=== PATIENT | male | born 1950 | race Caucasian/White ===

== ENCOUNTER 2020-10-22 07:38 | Inpatient (IN) | payer MEDICAID ==
[~2020-10-22] VITALS: Ht 165.1 cm; Wt 73.1 kg
[2020-10-22] MEDS ORDERED: AZITHROMYCIN 500 MG in DEXT 5% WATER 250 ML IV ONE (08:15)
[2020-10-22] MEDS ORDERED: SODIUM CHLORIDE 0.9% 1,000 ML IV ONE (08:15)
[2020-10-22] MEDS ORDERED: DEXAMETHASONE 10 MG/ML VIAL IV ONE (08:15)
[2020-10-22] MEDS ORDERED: CEFTRIAXONE 1 G PREMIX 50 ML IV ONE ×2 (08:15→15:45)
[2020-10-22 08:55] LABS: HEMATOCRIT. 42.4 % (42.0-52.0); HEMOGLOBIN. 14.8 g/dL (14.0-18.0); MEAN CORPUSCULAR HEMOGLOBIN 30.5 pg (28.0-32.0); MEAN CORPUSCULAR VOLUME 87.5 fL (80.0-94.0); MEAN PLATELET VOLUME 8.4 fl (7.4-10.4); PLATELET 333 x1000/uL (130-400); RED BLOOD CELL COUNT 4.85 mill/uL (4.7-6.1)
[2020-10-22 09:08] LABS: INR 1.1; PROTHROMBIN TIME 11.7 sec (9.6-11.0)
[2020-10-22 09:12] LABS: CHLORIDE 97 mEq/L (98-107)
[2020-10-22 09:19] LABS: FIBRINOGEN > 900 mg/dL (200-400)
[2020-10-22 09:20] LABS: CREATINE KINASE 26 IU/L (39-308)
[2020-10-22 09:21] LABS: PLATELET ESTIMATE NORMAL
[2020-10-22] MEDS: DEXAMETHASONE 10 MG/ML VIAL IV SCH (15:45)
[2020-10-22] MEDS: AZITHROMYCIN 500 MG TABLET PO SCH (15:45)
[2020-10-22] MEDS ORDERED: POTASSIUM CHLORIDE 20MEQ TABLET SR PO NR (15:45)
[2020-10-22] MEDS: ENOXAPARIN 40MG/0.4ML SYR SUBCUT SCH (16:48)
[2020-10-22] MEDS ORDERED: ACETAMINOPHEN 325MG TABLET PO PRN (17:15)
[2020-10-22] MEDS ORDERED: LORAZEPAM 0.5MG TABLET PO PRN (17:15)
[2020-10-22] MEDS ORDERED: DOCUSATE SODIUM 100MG CAPSULE PO PRN (17:15)
[2020-10-22] MEDS ORDERED: CLONIDINE 0.1MG TABLET PO PRN (17:15)
[2020-10-22] MEDS ORDERED: HYDROCODONE/ACETAMINOPHEN 5/325MG TABLET PO PRN (17:15)
[2020-10-22] MEDS ORDERED: ONDANSETRON HCL 4MG/2ML INJ IV PRN (17:15)
[2020-10-22 18:43] LABS: BG BASE EXCESS -2.6 mmol/L (-2.0-2.0); BG CARBOXYHEMOGLOBIN 0.3 % (0.5-1.5); BG DEOXYHEMOGLOBIN 7.1 % (0.0-5.0); BG FRACTION INSPIRED OXYGEN 100; BG HCO3 ACT 21.4 mmol/L (22.0-26.0); BG METHEMOGLOBIN 0.2 % (0.0-1.5); BG OXYGEN SATURATION 92.9 % (92.0-98.5); BG OXYHEMOGLOBIN 92.4 % (94.0-97.0); BG PCO2 34.9 mmHg (35.0-45.0); BG PH 7.406 (7.350-7.450); BG PO2 67.8 mmHg (75.0-100.0); BG SAMPLE SITE RIGHT RADIAL; BG TOTAL HEMOGLOBIN 14.5 g/dL (12.0-18.0); BG VENT MODE MASK - NRB
[2020-10-23 05:59] LABS: BASOPHILS % 0.2 % (0.0-2.0); HEMATOCRIT. 42.8 % (42.0-52.0); HEMOGLOBIN. 14.6 g/dL (14.0-18.0); LYMPHOCYTES % 7.6 % (20.0-50.0); MEAN CORPUSCULAR HEMOGLOBIN 30.1 pg (28.0-32.0); MEAN CORPUSCULAR VOLUME 88.5 fL (80.0-94.0); MEAN PLATELET VOLUME 8.5 fl (7.4-10.4); MONOCYTES % 8.2 % (2.0-8.0); PLATELET 342 x1000/uL (130-400); RED BLOOD CELL COUNT 4.83 mill/uL (4.7-6.1); RED CELL DISTRIBUTION WIDTH 13.1 % (11.6-14.6)
[2020-10-23 06:01] LABS: CHLORIDE 102 mEq/L (98-107)
[2020-10-23 06:09] LABS: PHOSPHORUS 3.6 mg/dL (2.5-4.9)
[2020-10-23 06:10] LABS: LDL CHOLESTEROL 65 mg/dL (5-100)
[2020-10-23 06:11] LABS: HDL CHOLESTEROL 28 mg/dL (40-59)
[2020-10-23] MEDS: AZITHROMYCIN 500 MG TABLET PO SCH (08:45)
[2020-10-23] MEDS: DEXAMETHASONE 10 MG/ML VIAL IV SCH (08:45)
[2020-10-23] MEDS ORDERED: CEFTRIAXONE SODIUM 1 G/VIAL ONE (09:52)
[2020-10-23] MEDS: CEFTRIAXONE 1,000 MG in DEXTROSE 5% WATER 50 ML IV SCH (10:04)
[2020-10-23] MEDS ORDERED: DEXTROSE 50% WATER 50ML SYRINGE IV PRN (13:15)
[2020-10-23] MEDS: ENOXAPARIN 40MG/0.4ML SYR SUBCUT SCH (16:00)
[2020-10-23] MEDS: BLOOD SUGAR DIAGNOSTIC STRIP TEST SCH ×2 (16:30→21:00)
[2020-10-23] MEDS: INSULIN LISPRO 100 UNITS/ML SUBCUT SCH (18:12)
[2020-10-23] MEDS ORDERED: INSULIN GLARGINE UD 100 UNITS/ML SYR SUBCUT SCH (22:00)
[2020-10-24 06:12] VITALS: BP 132/78
[2020-10-24 06:19] VITALS: BP 132/78
[2020-10-24] MEDS: BLOOD SUGAR DIAGNOSTIC STRIP TEST SCH ×4 (06:24→21:03)
[2020-10-24] MEDS: INSULIN LISPRO 100 UNITS/ML SUBCUT SCH ×4 (06:24→21:00)
[2020-10-24] MEDS ORDERED: INSU100I28 SQ (06:42)
[2020-10-24] MEDS ORDERED: METF-416 MT (06:42)
[2020-10-24] MEDS ORDERED: SIMV-46 PO (06:42)
[2020-10-24] MEDS ORDERED: BENA40TA9 MT (06:42)
[2020-10-24] MEDS ORDERED: NIFE90TA60 MT (06:42)
[2020-10-24] MEDS ORDERED: ASPI-1497 MT (06:42)
[2020-10-24 08:00] VITALS: BP 135/81
[2020-10-24] MEDS: DEXAMETHASONE 10 MG/ML VIAL IV SCH (09:00)
[2020-10-24] MEDS: AZITHROMYCIN 500 MG TABLET PO SCH (10:21)
[2020-10-24] MEDS: INSULIN GLARGINE UD 100 UNITS/ML SYR SUBCUT SCH ×2 (10:24→22:00)
[2020-10-24 12:00] VITALS: BP 145/82
[2020-10-24] MEDS: CEFTRIAXONE 1,000 MG in DEXTROSE 5% WATER 50 ML IV SCH (12:03)
[2020-10-24] MEDS ORDERED: GUAIFENESIN-DM 200MG-20MG/10ML UDC PO PRN (14:15)
[2020-10-24] MEDS ORDERED: BENZONATATE 100MG CAPSULE PO PRN (14:15)
[2020-10-24] MEDS: NIFEDIPINE XL 90MG TAB PO SCH (14:15)
[2020-10-24 15:49] LABS: CLARITY URINE CLEAR (CLEAR); COLOR URINE YELLOW (YELLOW); KETONES URINE NEGATIVE (NEGATIVE); LEUKOCYTE ESTERASE URINE NEGATIVE (NEGATIVE); NITRITE URINE NEGATIVE (NEGATIVE); OCCULT BLOOD URINE NEGATIVE (NEGATIVE); PROTEIN URINE NEGATIVE (NEGATIVE); SPECIFIC GRAVITY URINE 1.026 (1.005-1.030)
[2020-10-24 16:00] VITALS: BP 149/96
[2020-10-24] MEDS: ENOXAPARIN 40MG/0.4ML SYR SUBCUT SCH (16:00)
[2020-10-24 20:00] VITALS: BP 160/97
[2020-10-24] MEDS: ATORVASTATIN CALCIUM 40MG TABLET PO SCH (22:00)
[2020-10-25] VITALS: BP 152/93
[2020-10-25 04:00] VITALS: BP 126/72
[2020-10-25] MEDS: BLOOD SUGAR DIAGNOSTIC STRIP TEST SCH ×4 (06:11→21:50)
[2020-10-25] MEDS: INSULIN LISPRO 100 UNITS/ML SUBCUT SCH ×4 (06:11→21:54)
[2020-10-25 08:00] VITALS: BP 157/95
[2020-10-25] MEDS: CEFTRIAXONE 1,000 MG in DEXTROSE 5% WATER 50 ML IV SCH (09:57)
[2020-10-25] MEDS: INSULIN GLARGINE UD 100 UNITS/ML SYR SUBCUT SCH ×2 (09:58→23:44)
[2020-10-25] MEDS: DEXAMETHASONE 10 MG/ML VIAL IV SCH (09:58)
[2020-10-25] MEDS: NIFEDIPINE XL 90MG TAB PO SCH (09:58)
[2020-10-25] MEDS: AZITHROMYCIN 500 MG TABLET PO SCH (09:58)
[2020-10-25] MEDS: ASPIRIN 81MG EC TABLET PO SCH (11:05)
[2020-10-25 12:00] VITALS: BP 153/86
[2020-10-25] MEDS: ENOXAPARIN 40MG/0.4ML SYR SUBCUT SCH (17:04)
[2020-10-25 20:00] VITALS: BP 104/64
[2020-10-25] MEDS: ATORVASTATIN CALCIUM 40MG TABLET PO SCH (21:54)
[2020-10-26 00:06] VITALS: BP 113/72
[2020-10-26 04:00] VITALS: BP 115/79
[2020-10-26] MEDS: BLOOD SUGAR DIAGNOSTIC STRIP TEST SCH ×4 (07:22→21:50)
[2020-10-26 08:00] VITALS: BP 129/75
[2020-10-26] MEDS: ASPIRIN 81MG EC TABLET PO SCH (08:18)
[2020-10-26] MEDS: AZITHROMYCIN 500 MG TABLET PO SCH (08:18)
[2020-10-26] MEDS: DEXAMETHASONE 10 MG/ML VIAL IV SCH (08:18)
[2020-10-26] MEDS: NIFEDIPINE XL 90MG TAB PO SCH (08:18)
[2020-10-26] MEDS: CEFTRIAXONE 1,000 MG in DEXTROSE 5% WATER 50 ML IV SCH (08:19)
[2020-10-26] MEDS: INSULIN LISPRO 100 UNITS/ML SUBCUT SCH ×4 (08:19→21:51)
[2020-10-26] MEDS: INSULIN GLARGINE UD 100 UNITS/ML SYR SUBCUT SCH ×2 (11:03→22:36)
[2020-10-26 12:00] VITALS: BP 116/67
[2020-10-26 16:00] VITALS: BP 120/65
[2020-10-26] MEDS: ENOXAPARIN 40MG/0.4ML SYR SUBCUT SCH (17:41)
[2020-10-26 20:47] VITALS: BP 119/69
[2020-10-26] MEDS: ATORVASTATIN CALCIUM 40MG TABLET PO SCH (21:51)
[2020-10-27 00:06] VITALS: BP 123/77
[2020-10-27 04:00] VITALS: BP 119/69
[2020-10-27] MEDS: BLOOD SUGAR DIAGNOSTIC STRIP TEST SCH ×4 (06:33→21:00)
[2020-10-27] MEDS: INSULIN LISPRO 100 UNITS/ML SUBCUT SCH ×3 (07:10→16:51)
[2020-10-27] MEDS: ASPIRIN 81MG EC TABLET PO SCH (08:17)
[2020-10-27] MEDS: DEXAMETHASONE 10 MG/ML VIAL IV SCH (08:17)
[2020-10-27] MEDS: AZITHROMYCIN 500 MG TABLET PO SCH (08:17)
[2020-10-27] MEDS: CEFTRIAXONE 1,000 MG in DEXTROSE 5% WATER 50 ML IV SCH (08:17)
[2020-10-27] MEDS: NIFEDIPINE XL 90MG TAB PO SCH (08:21)
[2020-10-27] MEDS: INSULIN GLARGINE UD 100 UNITS/ML SYR SUBCUT SCH (11:08)
[2020-10-27] MEDS: ENOXAPARIN 40MG/0.4ML SYR SUBCUT SCH (16:50)
[2020-10-27 20:00] VITALS: BP 108/60
[2020-10-27] MEDS ORDERED: INSULIN GLARGINE UD 100 UNITS/ML SYR SUBCUT SCH (22:00)
[2020-10-28 00:04] VITALS: BP 109/67
[2020-10-28] MEDS: ATORVASTATIN CALCIUM 40MG TABLET PO SCH ×2 (01:17→21:16)
[2020-10-28] MEDS: INSULIN LISPRO 100 UNITS/ML SUBCUT SCH ×5 (01:17→21:17)
[2020-10-28 04:00] VITALS: BP 122/71
[2020-10-28] MEDS: BLOOD SUGAR DIAGNOSTIC STRIP TEST SCH ×4 (06:40→21:17)
[2020-10-28 08:00] VITALS: BP 116/76
[2020-10-28] MEDS: ASPIRIN 81MG EC TABLET PO SCH (08:50)
[2020-10-28] MEDS: DEXAMETHASONE 10 MG/ML VIAL IV SCH (08:50)
[2020-10-28] MEDS: NIFEDIPINE XL 90MG TAB PO SCH (08:50)
[2020-10-28] MEDS: INSULIN GLARGINE UD 100 UNITS/ML SYR SUBCUT SCH ×2 (10:53→22:18)
[2020-10-28 16:00] VITALS: BP 112/65
[2020-10-28] MEDS: ENOXAPARIN 40MG/0.4ML SYR SUBCUT SCH (16:38)
[2020-10-28 20:00] VITALS: BP 119/67
[2020-10-29] VITALS: BP_SYST 129; BP_SYST 130; BP_DIAS 74
[2020-10-29] MEDS: INSULIN LISPRO 100 UNITS/ML SUBCUT SCH ×4 (06:42→21:48)
[2020-10-29] MEDS: BLOOD SUGAR DIAGNOSTIC STRIP TEST SCH ×4 (06:42→21:48)
[2020-10-29 07:36] LABS: BASOPHILS % 0.1 % (0.0-2.0); EOSINOPHILS % 1.2 % (0.0-5.0); HEMATOCRIT. 44.1 % (42.0-52.0); HEMOGLOBIN. 14.7 g/dL (14.0-18.0); MEAN CORPUSCULAR HEMOGLOBIN 29.4 pg (28.0-32.0); MEAN CORPUSCULAR VOLUME 88.3 fL (80.0-94.0); MEAN PLATELET VOLUME 8.7 fl (7.4-10.4); NEUTROPHILS % 85.7 % (40.0-76.0); PLATELET 263 x1000/uL (130-400); RED BLOOD CELL COUNT 4.99 mill/uL (4.7-6.1); RED CELL DISTRIBUTION WIDTH 12.9 % (11.6-14.6)
[2020-10-29 07:43] LABS: CHLORIDE 104 mEq/L (98-107)
[2020-10-29 08:00] VITALS: BP 123/67
[2020-10-29] MEDS: DEXAMETHASONE 10 MG/ML VIAL IV SCH (08:59)
[2020-10-29] MEDS: ASPIRIN 81MG EC TABLET PO SCH (08:59)
[2020-10-29] MEDS: NIFEDIPINE XL 90MG TAB PO SCH (08:59)
[2020-10-29] MEDS: INSULIN GLARGINE UD 100 UNITS/ML SYR SUBCUT SCH ×2 (10:13→22:47)
[2020-10-29 12:00] VITALS: BP 130/75
[2020-10-29 16:00] VITALS: BP 144/75
[2020-10-29] MEDS: ENOXAPARIN 40MG/0.4ML SYR SUBCUT SCH (16:35)
[2020-10-29 20:00] VITALS: BP 115/69
[2020-10-29] MEDS: ATORVASTATIN CALCIUM 40MG TABLET PO SCH (21:48)
[2020-10-30] VITALS: BP 120/71
[2020-10-30 04:00] VITALS: BP 120/70
[2020-10-30] MEDS: BLOOD SUGAR DIAGNOSTIC STRIP TEST SCH ×4 (06:13→21:38)
[2020-10-30] MEDS: INSULIN LISPRO 100 UNITS/ML SUBCUT SCH ×4 (07:10→21:39)
[2020-10-30 07:11] LABS: CHLORIDE 104 mEq/L (98-107)
[2020-10-30 07:23] LABS: HEMATOCRIT. 44.8 % (42.0-52.0); HEMOGLOBIN. 14.8 g/dL (14.0-18.0); MEAN CORPUSCULAR HEMOGLOBIN 29.7 pg (28.0-32.0); MEAN CORPUSCULAR VOLUME 89.6 fL (80.0-94.0); MEAN PLATELET VOLUME 8.9 fl (7.4-10.4); PLATELET 300 x1000/uL (130-400); RED CELL DISTRIBUTION WIDTH 13.2 % (11.6-14.6)
[2020-10-30 08:00] VITALS: BP 122/68
[2020-10-30] MEDS: NIFEDIPINE XL 90MG TAB PO SCH (09:57)
[2020-10-30] MEDS: ASPIRIN 81MG EC TABLET PO SCH (09:57)
[2020-10-30] MEDS: DEXAMETHASONE 10 MG/ML VIAL IV SCH (09:57)
[2020-10-30] MEDS: INSULIN GLARGINE UD 100 UNITS/ML SYR SUBCUT SCH ×2 (10:00→21:39)
[2020-10-30 12:00] VITALS: BP 112/65
[2020-10-30] MEDS: ENOXAPARIN 40MG/0.4ML SYR SUBCUT SCH (15:07)
[2020-10-30 16:00] VITALS: BP 132/65
[2020-10-30 20:00] VITALS: BP 102/63
[2020-10-30 20:11] LABS: PLATELET ESTIMATE NORMAL
[2020-10-30] MEDS: ATORVASTATIN CALCIUM 40MG TABLET PO SCH (21:38)
[2020-10-31] VITALS: BP 119/69
[2020-10-31 04:00] VITALS: BP 126/71
[2020-10-31] MEDS: BLOOD SUGAR DIAGNOSTIC STRIP TEST SCH ×4 (05:58→21:00)
[2020-10-31] MEDS: INSULIN LISPRO 100 UNITS/ML SUBCUT SCH ×4 (05:58→22:03)
[2020-10-31 07:37] LABS: HEMATOCRIT. 41.6 % (42.0-52.0); HEMOGLOBIN. 13.8 g/dL (14.0-18.0); MEAN CORPUSCULAR HEMOGLOBIN 29.3 pg (28.0-32.0); MEAN CORPUSCULAR VOLUME 88.1 fL (80.0-94.0); MEAN PLATELET VOLUME 8.4 fl (7.4-10.4); PLATELET 293 x1000/uL (130-400); RED BLOOD CELL COUNT 4.72 mill/uL (4.7-6.1); RED CELL DISTRIBUTION WIDTH 13.1 % (11.6-14.6)
[2020-10-31 07:46] LABS: CHLORIDE 104 mEq/L (98-107)
[2020-10-31 08:00] VITALS: BP 125/78
[2020-10-31] MEDS: ASPIRIN 81MG EC TABLET PO SCH (08:08)
[2020-10-31] MEDS: DEXAMETHASONE 10 MG/ML VIAL IV SCH (08:08)
[2020-10-31] MEDS: NIFEDIPINE XL 90MG TAB PO SCH (08:09)
[2020-10-31] MEDS: INSULIN GLARGINE UD 100 UNITS/ML SYR SUBCUT SCH ×2 (09:33→22:02)
[2020-10-31 12:00] VITALS: BP 115/68
[2020-10-31 16:00] VITALS: BP 112/63
[2020-10-31] MEDS: ENOXAPARIN 40MG/0.4ML SYR SUBCUT SCH (16:07)
[2020-10-31 20:00] VITALS: BP 110/65
[2020-10-31] MEDS: ATORVASTATIN CALCIUM 40MG TABLET PO SCH (22:02)
[2020-10-31 23:28] LABS: PLATELET ESTIMATE NORMAL
[2020-11-01] VITALS: BP 121/70
[2020-11-01] MEDS: BLOOD SUGAR DIAGNOSTIC STRIP TEST SCH ×4 (05:35→21:27)
[2020-11-01] MEDS: INSULIN LISPRO 100 UNITS/ML SUBCUT SCH ×4 (05:36→21:00)
[2020-11-01 08:00] VITALS: BP 120/65
[2020-11-01] MEDS: NIFEDIPINE XL 90MG TAB PO SCH (10:44)
[2020-11-01] MEDS: INSULIN GLARGINE UD 100 UNITS/ML SYR SUBCUT SCH ×2 (10:45→22:00)
[2020-11-01] MEDS: ASPIRIN 81MG EC TABLET PO SCH (10:45)
[2020-11-01 12:00] VITALS: BP 122/64
[2020-11-01 16:00] VITALS: BP 127/74
[2020-11-01] MEDS: DEXAMETHASONE 10 MG/ML VIAL IV SCH (17:09)
[2020-11-01] MEDS: ENOXAPARIN 40MG/0.4ML SYR SUBCUT SCH (17:09)
[2020-11-01 20:00] VITALS: BP 108/75
[2020-11-01] MEDS: ATORVASTATIN CALCIUM 40MG TABLET PO SCH (21:32)
[2020-11-02] VITALS: BP 124/81
[2020-11-02] MEDS: BLOOD SUGAR DIAGNOSTIC STRIP TEST SCH ×3 (06:40→17:22)
[2020-11-02] MEDS: INSULIN LISPRO 100 UNITS/ML SUBCUT SCH ×4 (07:10→21:55)
[2020-11-02 08:00] VITALS: BP 113/67
[2020-11-02] MEDS: DEXAMETHASONE 10 MG/ML VIAL IV SCH (08:40)
[2020-11-02] MEDS: ASPIRIN 81MG EC TABLET PO SCH (08:40)
[2020-11-02] MEDS: NIFEDIPINE XL 90MG TAB PO SCH (08:42)
[2020-11-02] MEDS: INSULIN GLARGINE UD 100 UNITS/ML SYR SUBCUT SCH ×2 (10:00→21:54)
[2020-11-02 12:00] VITALS: BP 126/71
[2020-11-02 16:00] VITALS: BP 135/78
[2020-11-02] MEDS: ENOXAPARIN 40MG/0.4ML SYR SUBCUT SCH (17:50)
[2020-11-02 20:00] VITALS: BP 115/70
[2020-11-02] MEDS: ATORVASTATIN CALCIUM 40MG TABLET PO SCH (21:53)
[2020-11-03] VITALS: BP 120/71
[2020-11-03 04:00] VITALS: BP 128/74
[2020-11-03] MEDS: INSULIN LISPRO 100 UNITS/ML SUBCUT SCH ×4 (06:24→20:59)
[2020-11-03] MEDS: BLOOD SUGAR DIAGNOSTIC STRIP TEST SCH ×4 (06:24→20:57)
[2020-11-03 08:00] VITALS: BP 131/81
[2020-11-03] MEDS: DEXAMETHASONE 10 MG/ML VIAL IV SCH (09:42)
[2020-11-03] MEDS: NIFEDIPINE XL 90MG TAB PO SCH (09:44)
[2020-11-03] MEDS: ASPIRIN 81MG EC TABLET PO SCH (09:44)
[2020-11-03] MEDS: ENOXAPARIN 40MG/0.4ML SYR SUBCUT SCH (11:02)
[2020-11-03] MEDS: INSULIN GLARGINE UD 100 UNITS/ML SYR SUBCUT SCH ×2 (11:04→22:43)
[2020-11-03 12:00] VITALS: BP 141/79
[2020-11-03 16:00] VITALS: BP 120/72
[2020-11-03] MEDS: ACETAMINOPHEN 325MG TABLET PO PRN (17:47)
[2020-11-03 20:46] VITALS: BP 123/63
[2020-11-03] MEDS: ATORVASTATIN CALCIUM 40MG TABLET PO SCH (20:58)
[2020-11-04 00:13] VITALS: BP 125/75
[2020-11-04 04:00] VITALS: BP 140/80
[2020-11-04] MEDS: BLOOD SUGAR DIAGNOSTIC STRIP TEST SCH ×4 (06:40→21:17)
[2020-11-04] MEDS: INSULIN LISPRO 100 UNITS/ML SUBCUT SCH ×5 (07:10→23:45)
[2020-11-04 08:00] VITALS: BP 131/81
[2020-11-04] MEDS: ENOXAPARIN 40MG/0.4ML SYR SUBCUT SCH (09:57)
[2020-11-04] MEDS: NIFEDIPINE XL 90MG TAB PO SCH (09:57)
[2020-11-04] MEDS: ASPIRIN 81MG EC TABLET PO SCH (09:57)
[2020-11-04] MEDS: INSULIN GLARGINE UD 100 UNITS/ML SYR SUBCUT SCH ×2 (09:58→23:44)
[2020-11-04 12:00] VITALS: BP 129/78
[2020-11-04 16:00] VITALS: BP 108/72
[2020-11-04 20:00] VITALS: BP 104/73
[2020-11-04] MEDS: ATORVASTATIN CALCIUM 40MG TABLET PO SCH (21:17)
[2020-11-05] VITALS: BP 140/84
[2020-11-05 04:00] VITALS: BP 142/75
[2020-11-05] MEDS: BLOOD SUGAR DIAGNOSTIC STRIP TEST SCH ×4 (06:40→21:00)
[2020-11-05] MEDS: NIFEDIPINE XL 90MG TAB PO SCH (09:36)
[2020-11-05] MEDS: ASPIRIN 81MG EC TABLET PO SCH (09:36)
[2020-11-05] MEDS: INSULIN GLARGINE UD 100 UNITS/ML SYR SUBCUT SCH (09:37)
[2020-11-05] MEDS: ENOXAPARIN 40MG/0.4ML SYR SUBCUT SCH (09:37)
[2020-11-05] MEDS: INSULIN LISPRO 100 UNITS/ML SUBCUT SCH ×2 (12:55→16:37)
[2020-11-05 16:13] VITALS: BP 127/80
[2020-11-05 20:00] VITALS: BP 135/80
[2020-11-05] MEDS: ATORVASTATIN CALCIUM 40MG TABLET PO SCH (22:49)
[2020-11-05] MEDS: ACETAMINOPHEN 325MG TABLET PO PRN ×2 (23:04)
[2020-11-06] VITALS: BP 139/72
[2020-11-06] MEDS: INSULIN LISPRO 100 UNITS/ML SUBCUT SCH ×5 (00:58→22:44)
[2020-11-06] MEDS: INSULIN GLARGINE UD 100 UNITS/ML SYR SUBCUT SCH ×3 (01:00→22:45)
[2020-11-06 04:00] VITALS: BP 132/89
[2020-11-06 05:55] LABS: CHLORIDE 105 mEq/L (98-107)
[2020-11-06 06:10] LABS: BASOPHILS % 0.2 % (0.0-2.0); EOSINOPHILS % 2.2 % (0.0-5.0); HEMATOCRIT. 44.1 % (42.0-52.0); HEMOGLOBIN. 14.6 g/dL (14.0-18.0); LYMPHOCYTES % 7.5 % (20.0-50.0); MEAN CORPUSCULAR HEMOGLOBIN 29.4 pg (28.0-32.0); MEAN CORPUSCULAR VOLUME 88.5 fL (80.0-94.0); MEAN PLATELET VOLUME 8.9 fl (7.4-10.4); MONOCYTES % 6.9 % (2.0-8.0); NEUTROPHILS % 83.2 % (40.0-76.0); PLATELET 392 x1000/uL (130-400); RED BLOOD CELL COUNT 4.98 mill/uL (4.7-6.1); RED CELL DISTRIBUTION WIDTH 12.8 % (11.6-14.6)
[2020-11-06] MEDS: BLOOD SUGAR DIAGNOSTIC STRIP TEST SCH ×4 (06:40→21:00)
[2020-11-06 08:00] VITALS: BP 129/81
[2020-11-06] MEDS: ENOXAPARIN 40MG/0.4ML SYR SUBCUT SCH (10:31)
[2020-11-06] MEDS: ASPIRIN 81MG EC TABLET PO SCH (10:31)
[2020-11-06] MEDS: NIFEDIPINE XL 90MG TAB PO SCH (10:31)
[2020-11-06 12:00] VITALS: BP 129/80
[2020-11-06 16:00] VITALS: BP 114/80
[2020-11-06 18:38] LABS: BG BASE EXCESS 4.1 mmol/L (-2.0-2.0); BG CARBOXYHEMOGLOBIN 0.4 % (0.5-1.5); BG DEOXYHEMOGLOBIN 25.5 % (0.0-5.0); BG HCO3 ACT 28.7 mmol/L (22.0-26.0); BG METHEMOGLOBIN 0.2 % (0.0-1.5); BG OXYGEN SATURATION 74.3 % (92.0-98.5); BG OXYHEMOGLOBIN 73.9 % (94.0-97.0); BG PCO2 43.1 mmHg (35.0-45.0); BG PH 7.442 (7.350-7.450); BG SAMPLE SITE RIGHT BRACHIAL; BG TOTAL HEMOGLOBIN 15.4 g/dL (12.0-18.0); BG VENT MODE ROOM AIR
[2020-11-06 20:00] VITALS: BP 121/70
[2020-11-06] MEDS: ATORVASTATIN CALCIUM 40MG TABLET PO SCH (21:57)
[2020-11-07] VITALS: BP 125/76
[2020-11-07 04:00] VITALS: BP 119/73
[2020-11-07 06:22] LABS: BASOPHILS % 0.3 % (0.0-2.0); EOSINOPHILS % 4.1 % (0.0-5.0); HEMATOCRIT. 40.7 % (42.0-52.0); LYMPHOCYTES % 12.6 % (20.0-50.0); MEAN CORPUSCULAR HEMOGLOBIN 30.3 pg (28.0-32.0); MEAN PLATELET VOLUME 8.9 fl (7.4-10.4); MONOCYTES % 7.2 % (2.0-8.0); NEUTROPHILS % 75.8 % (40.0-76.0); PLATELET 370 x1000/uL (130-400); RED BLOOD CELL COUNT 4.63 mill/uL (4.7-6.1); RED CELL DISTRIBUTION WIDTH 12.7 % (11.6-14.6)
[2020-11-07] MEDS: BLOOD SUGAR DIAGNOSTIC STRIP TEST SCH ×4 (06:37→20:41)
[2020-11-07 07:05] LABS: CHLORIDE 105 mEq/L (98-107)
[2020-11-07] MEDS: INSULIN LISPRO 100 UNITS/ML SUBCUT SCH ×4 (07:10→21:00)
[2020-11-07 08:00] VITALS: BP 122/75
[2020-11-07] MEDS: ENOXAPARIN 40MG/0.4ML SYR SUBCUT SCH (08:26)
[2020-11-07] MEDS: ASPIRIN 81MG EC TABLET PO SCH (08:26)
[2020-11-07] MEDS: NIFEDIPINE XL 90MG TAB PO SCH (08:27)
[2020-11-07] MEDS: INSULIN GLARGINE UD 100 UNITS/ML SYR SUBCUT SCH ×2 (09:34→22:00)
[2020-11-07 12:00] VITALS: BP 127/75
[2020-11-07 16:00] VITALS: BP 114/70
[2020-11-07 20:00] VITALS: BP 123/76
[2020-11-07] MEDS: ATORVASTATIN CALCIUM 40MG TABLET PO SCH (20:41)
[2020-11-08 00:01] VITALS: BP 132/76
[2020-11-08 04:00] VITALS: BP 118/78
[2020-11-08] MEDS: BLOOD SUGAR DIAGNOSTIC STRIP TEST SCH ×5 (06:37→21:39)
[2020-11-08] MEDS: INSULIN LISPRO 100 UNITS/ML SUBCUT SCH ×4 (06:37→21:38)
[2020-11-08 08:00] VITALS: BP 145/84
[2020-11-08] MEDS: NIFEDIPINE XL 90MG TAB PO SCH (09:15)
[2020-11-08] MEDS: ASPIRIN 81MG EC TABLET PO SCH (09:15)
[2020-11-08] MEDS: ENOXAPARIN 40MG/0.4ML SYR SUBCUT SCH (09:16)
[2020-11-08] MEDS: INSULIN GLARGINE UD 100 UNITS/ML SYR SUBCUT SCH ×2 (10:30→21:26)
[2020-11-08 12:00] VITALS: BP 139/81
[2020-11-08] MEDS ORDERED: POTASSIUM CHLORIDE 20MEQ TABLET SR PO ONE (13:15)
[2020-11-08 16:00] VITALS: BP 140/74
[2020-11-08 20:00] VITALS: BP 137/77
[2020-11-08] MEDS: ATORVASTATIN CALCIUM 40MG TABLET PO SCH (21:24)
[2020-11-09] VITALS: BP 137/74
[2020-11-09 04:00] VITALS: BP 147/84
[2020-11-09 08:00] VITALS: BP 133/81
[2020-11-09] MEDS: ENOXAPARIN 40MG/0.4ML SYR SUBCUT SCH (09:01)
[2020-11-09] MEDS: ASPIRIN 81MG EC TABLET PO SCH (09:01)
[2020-11-09] MEDS: INSULIN LISPRO 100 UNITS/ML SUBCUT SCH ×4 (09:02→21:00)
[2020-11-09] MEDS: NIFEDIPINE XL 90MG TAB PO SCH (09:11)
[2020-11-09] MEDS: INSULIN GLARGINE UD 100 UNITS/ML SYR SUBCUT SCH ×2 (10:04→23:18)
[2020-11-09] MEDS: BLOOD SUGAR DIAGNOSTIC STRIP TEST SCH ×3 (11:52→21:00)
[2020-11-09 12:00] VITALS: BP 134/77
[2020-11-09 16:00] VITALS: BP 126/78
[2020-11-09 20:00] VITALS: BP 128/75
[2020-11-09] MEDS: ATORVASTATIN CALCIUM 40MG TABLET PO SCH (23:13)
[2020-11-10] MEDS: BLOOD SUGAR DIAGNOSTIC STRIP TEST SCH ×4 (06:52→21:00)
[2020-11-10] MEDS: INSULIN LISPRO 100 UNITS/ML SUBCUT SCH ×4 (07:50→22:12)
[2020-11-10 08:25] VITALS: BP 136/86
[2020-11-10] MEDS: ASPIRIN 81MG EC TABLET PO SCH (10:02)
[2020-11-10] MEDS: NIFEDIPINE XL 90MG TAB PO SCH (10:03)
[2020-11-10] MEDS: ENOXAPARIN 40MG/0.4ML SYR SUBCUT SCH (10:08)
[2020-11-10] MEDS: INSULIN GLARGINE UD 100 UNITS/ML SYR SUBCUT SCH ×2 (10:09→22:13)
[2020-11-10] MEDS: ACETAMINOPHEN 325MG TABLET PO PRN (10:10)
[2020-11-10 20:00] VITALS: BP 123/72
[2020-11-10] MEDS: ATORVASTATIN CALCIUM 40MG TABLET PO SCH (22:10)
[2020-11-11] MEDS: BLOOD SUGAR DIAGNOSTIC STRIP TEST SCH ×3 (06:24→17:14)
[2020-11-11] MEDS: INSULIN LISPRO 100 UNITS/ML SUBCUT SCH ×3 (07:50→17:18)
[2020-11-11 08:00] VITALS: BP 136/84
[2020-11-11] MEDS: ASPIRIN 81MG EC TABLET PO SCH (10:06)
[2020-11-11] MEDS: NIFEDIPINE XL 90MG TAB PO SCH (10:06)
[2020-11-11] MEDS: ENOXAPARIN 40MG/0.4ML SYR SUBCUT SCH (10:07)
[2020-11-11] MEDS: INSULIN GLARGINE UD 100 UNITS/ML SYR SUBCUT SCH (10:37)
[2020-11-11 17:30] VITALS: BP 136/84
== END 2020-11-11 18:57 | disposition home or self-care (01) | DRG 720 ==
LOC: ER 07:50 → MICUSO 10:32 → EDBEDREQ 10:37 → 7EST 10-24 04:33 → 6WST 11-09 18:40
PROVIDERS: ADMIT Internal Medicine; ATTEND Internal Medicine
DX: A41.89 Other specified sepsis (principal); U07.1 COVID-19; J96.01 Acute respiratory failure with hypoxia; E11.9 Type 2 diabetes mellitus without complications; E78.5 Hyperlipidemia, unspecified; E87.2 Acidosis; I10 Essential (primary) hypertension; J12.82 Pneumonia due to coronavirus disease 2019; I42.9 Cardiomyopathy, unspecified; Z82.49 Family history of ischemic heart disease and other diseases of the circulatory system; Z86.19 Personal history of other infectious and parasitic diseases; Z79.84 Long term (current) use of oral hypoglycemic drugs; R65.20 Severe sepsis without septic shock
CPT/HCPCS: 36415; 36600; 71045; 80048; 80053; 80061; 81003; 82375; 82550; 82728; 82805; 82962; 83036; 83605; 83615; 83735; 83880; 84100; 84145; 84443; 84484; 85025; 85379; 85384; 86140; 93005; 96365; 99291; C1893; J0456; J0696; J1100; J1650; J1815; J7030; J7040; J7060; U0003